=== PATIENT | female | born 1995 | race Two or more races ===

== ENCOUNTER 2016-07-30 13:03 | Emergency (ER) | payer OTHER ==
[2016-07-30 13:11] VITALS: BP 106/59; PULSE 81; TEMP 98.5; BMI 24.4
[2016-07-30] MEDS ORDERED: IBUPROFEN 600 MG TABLET (FP) PO ONE ×2 (13:43→13:47)
--- NOTE | 2016-07-30 13:47 | PDOC ---
History of Present Illness - General Chief Complaint: Cold Symptoms Stated Complaint: EAR PAIN, SORE THROAT Time Seen by Provider: 07/30/16 13:13 History Source: Patient Exam Limitations: No Limitations - History of Present Illness Initial Comments: 07/30/16 13:47 20 year old female with cold symptoms x 3weeks. Reports runny stuffy nose with one episode of subjective fever present with one week of left side ear pain and pain with swallowing. States took acetaminophen 65o for 3 weeks feeling better except for earache. Denies decrease hearing Timing/Duration: reports: week Severity: reports: mild Possible Cause: Yes: no prior episodes Modifying Factors: improves with: other Associated Symptoms: reports: sore throat Aspirin Received prior to arrival: Yes: no aspirin today ASA Contraindications(Core Measure): No: Allergy Beta Shaun Contraindications(Core Measure): Yes: Not Prescribed Beta Shaun Given by EMS(Core Measure): No Beta Shaun Taken at Home(Core Measure): No Beta Shaun Not Indicated at this Time(Core Measure): No Past History - Travel Traveled outside of the country in the last 30 days: No Close contact w/someone who was outside of country & ill: No - Past Medical History Allergies/Adverse Reactions: Allergies Allergy/AdvReac Type Severity Reaction Status Date / Time No Known Allergies Allergy Verified 07/30/16 13:06 Home Medications: Ambulatory Orders Amoxicillin - [Amoxicillin 500mg Capsule -] 500 mg PO TID #30 capsule 07/30/16 Suicide Attempt (Hx): No Other medical history: none - Immunization History Immunization Up to Date: Yes - Psycho/Social/Smoking Cessation Hx Anxiety: No Suicidal Ideation: No Smoking History: Never smoked Have you smoked in the past 12 months: No Information on smoking cessation initiated: No Hx Alcohol Use: No Drug/Substance Use Hx: No Substance Use Type: None Respiratory Specific PMHX - Complaint Specific PMHX Angina: No Bronchitis: No Pneumonia: No Pulmonary Embolus: No TB (Tuberculosis): No Review of Systems - Review of Systems Able to Perform ROS?: Yes Is the patient limited Lebanese proficient: No Constitutional: No: Chills, Fever, Night Sweats HEENTM: Yes: Ear Pain, Throat Pain. No: Nose Congestion Respiratory: Yes: Cough. No: Orthopnea, Shortness of Breath, Wheezing Cardiac (ROS): No: Chest Pain, Lightheadedness ABD/GI: No: Abdominal Distended, Blood Streaked Bowels, Nausea Integumentary: No: Bruising Neurological: No: Headache, Numbness, Paresthesia Endocrine: No: Excessive Sweating *Physical Exam - Vital Signs Last Vital Signs Temp Pulse Resp BP Pulse Ox 98.5 F 81 18 106/59 100 07/30/16 13:07 07/30/16 13:07 07/30/16 13:07 07/30/16 13:07 07/30/16 13:07 - Physical Exam General Appearance: Yes: Nourished, Appropriately Dressed, Apparent Distress HEENT: positive: EOMI, NICHOLAS, Normal ENT Inspection, TMs Normal, Pharynx Normal, TM Dull (left tm dull, no reflection of light, appears with ruptured membranes) Neck: positive: Supple. negative: Lymphadenopathy (R), Lymphadenopathy (L) Respiratory/Chest: positive: Lungs Clear. negative: Paradoxal Breathing, Crackles Cardiovascular: positive: Regular Rhythm, Regular Rate, S1, S2 Extremity: positive: Normal Capillary Refill, Normal Inspection, Normal Range of Motion, Tender Neurologic: positive: day care home provider II-XII NML intact, Fully Oriented, Alert, Normal Response, Motor Strength 5/5 Medical Decision Making - Medical Decision Making 07/30/16 13:51 20 year old female with otitis media 07/30/16 18:49 rx: amoxicillin x 10 days *DC/Admit/Observation/Transfer Diagnosis at time of Disposition: Otitis media Qualifiers: Otitis media type: suppurative Laterality: left Chronicity: acute Recurrence: not specified as recurrent Spontaneous tympanic membrane rupture: with spontaneous rupture Qualified Code(s): H66.012 - Acute suppurative otitis media with spontaneous rupture of ear drum, left ear - Discharge Dispostion Disposition: HOME Condition at time of disposition: Good Admit: No - Prescriptions Prescriptions: Amoxicillin - [Amoxicillin 500mg Capsule -] 500 mg PO TID #30 capsule - Patient Instructions Printed Discharge Instructions: DI for Otitis Media (Middle Ear Infection)- Child Additional Instructions: Return to emergency room for worsening of infection such as fever, chills or decrease hearing. - Post Discharge Activity Work/School Note: Back to Work
[2016-07-30] MEDS ORDERED: AMOXICILLIN 500 MG CAPSULE (FP) PO ONE (14:00)
[2016-07-30] MEDS ORDERED: AMOXICILLIN 500 MG CAPSULE (FP) ONE (14:00)
== END 2016-07-30 14:02 | disposition home or self-care (01) ==
LOC: JERFT 13:03
DX: H66.012 Acute suppurative otitis media with spontaneous rupture of ear drum, left ear (principal)
CPT/HCPCS: 99281-25

== ENCOUNTER 2016-08-29 12:45 | Emergency (ER) | payer OTHER ==
[2016-08-29 12:50] VITALS: BMI 24.7
[2016-08-29] MEDS ORDERED: RANITIDINE HCL 150 MG TABLET (FP) PO ONE (13:10)
[2016-08-29] MEDS ORDERED: ONDANSETRON 4 MG TABLET PO ONE (13:10)
[2016-08-29] MEDS ORDERED: RANITIDINE HCL 150 MG TABLET (FP) ONE (13:15)
[2016-08-29] MEDS ORDERED: ONDANSETRON *ODT* 4 MG TABLET ONE (13:16)
--- NOTE | 2016-08-29 13:26 | PDOC ---
History of Present Illness - General Chief Complaint: Pain Stated Complaint: ABD PAIN Time Seen by Provider: 08/29/16 12:54 History Source: Patient Exam Limitations: No Limitations - History of Present Illness Travel History: No Initial Comments: 08/29/16 13:21 20-year-old female presents to the emergency with complaints of diarrhea 2 days ago approximately 5 episodes followed by 3-4 yesterday but resolved after taking Imodium last night. Patient still complaining of burning cramping to her epigastric area with mild nausea and denies fever, chills, history of gallstones , urinary complaints, recent travel, recent illness, recent change in diet, or recent sick contacts. Timing/Duration: reports: changing over time Quality: reports: mild, burning, cramping Abdominal Pain Onset Location: reports: epigastric Pain Radiation: reports: no radiation Activities at Onset: reports: none Aggravating Factors: improves with: None Alleviating Factors: improves with: None Past History - Past Medical History Allergies/Adverse Reactions: Allergies Allergy/AdvReac Type Severity Reaction Status Date / Time No Known Allergies Allergy Verified 08/29/16 12:48 Home Medications: Ambulatory Orders NK [No Known Home Medication] 08/29/16 Suicide Attempt (Hx): No - Reproductive History Is Patient Now?: No - Immunization History Immunization Up to Date: Yes - Psycho/Social/Smoking Cessation Hx Anxiety: No Suicidal Ideation: No Smoking History: Never smoked Have you smoked in the past 12 months: No Information on smoking cessation initiated: No Hx Alcohol Use: No Drug/Substance Use Hx: No Substance Use Type: None Patient Lives Alone: No Lives with/in: parents Abd/GI Specific PMHX - Complaint Specific PMHX Gall Bladder Disease: No GERD: No GI Ulcer Disease: No Review of Systems - Review of Systems Able to Perform ROS?: Yes Constitutional: No: Symptoms Reported HEENTM: No: Symptoms Reported Respiratory: No: Symptoms reported Cardiac (ROS): No: Symptoms Reported ABD/GI: Yes: Diarrhea, Nausea, Abdominal cramping : No: Symptoms Reported Musculoskeletal: No: Symptoms Reported Integumentary: No: Symptoms Reported Neurological: No: Symptoms reported Hematologic/Lymphatic: No: Symptoms Reported *Physical Exam - Vital Signs Last Vital Signs Temp Pulse Resp BP Pulse Ox 98.1 F 86 18 118/65 100 08/29/16 12:48 08/29/16 12:48 08/29/16 12:48 08/29/16 12:48 08/29/16 12:48 - Physical Exam General Appearance: Yes: Nourished, Appropriately Dressed. No: Apparent Distress HEENT: positive: Pharynx Normal. negative: Pale Conjunctivae Respiratory/Chest: positive: Lungs Clear, Normal Breath Sounds. negative: Respiratory Distress, Accessory Muscle Use Cardiovascular: positive: Regular Rhythm, Regular Rate. negative: Murmur Gastrointestinal/Abdominal: positive: Normal Bowel Sounds, Soft, Tenderness ( mild epigastric. No right upper quadrant) Musculoskeletal: negative: CVA Tenderness Extremity: positive: Normal Capillary Refill. negative: Pedal Edema Integumentary: positive: Normal Color, Warm, Moist Neurologic: positive: Motor Strength 5/5 (ambulatory) ED Treatment Course - LABORATORY CBC & Chemistry Diagram: 08/29/16 13:12 08/29/16 13:12 Medical Decision Making - Medical Decision Making 08/29/16 13:25 patient with diarrhea that resolved after taking Imodium last nightbut has continual Epigastric burning and cramping associate mild nausea. Patient ordered for labs, lipase, urinalysis urine , Zofran, Pepcid, and reevaluation. 08/29/16 14:16 Laboratory Tests 08/29/16 08/29/16 08/29/16 13:12 13:12 13:12 WBC 7.3 D Hgb 13.6 Hct 40.2 Plt Count 173 Neutrophils % 65.9 Sodium 141 Potassium 3.4 L Chloride 104 Carbon Dioxide 26 Anion Gap 11 BUN 10 D Creatinine 0.5 L Random Glucose 85 Calcium 8.8 Magnesium 2.1 AST 16 ALT 21 Lipase 155 Urine Ketones Trace H Urine Blood 3+ H Ur Leukocyte Esterase Trace H Urine WBC 3 Urine HCG, Qual Negative Patient will given apple juice and saltines along with vitals to be completed. 08/29/16 14:28 Patient tolerated By mouth challenge and repeat vital stable. Patient requesting work note for today and will be discharged home with Zofran. *DC/Admit/Observation/Transfer Diagnosis at time of Disposition: Nausea, Epigastric pain Diarrhea Qualifiers: Diarrhea type: unspecified type Qualified Code(s): R19.7 - Diarrhea, unspecified - Discharge Dispostion Disposition: HOME Condition at time of disposition: Improved - Referrals Referrals: Samanta Kerr [Primary Care Provider] - - Patient Instructions Printed Discharge Instructions: DI for Epigastric Pain, DI for Viral Gastroenteritis -- Adult Additional Instructions: Please take Zofran as needed for nausea and have clear liquids or bland food today and tomorrow then advance as tolerated. Return to ED if symptoms return. otherwise follow-up with your primary care physician. - Post Discharge Activity Work/School Note: Back to Work
[2016-08-29 13:28] LABS: BASOPHIL 0.4 % (0-2.0); EOSINOPHIL 0.7 % (0-4.5); MCH 29.6 pg (25.7-33.7); MCHC 33.8 g/dl (32.0-36.0); MEAN CELL VOLUME 87.6 fl (80-96); MEAN PLT VOLUME 9.2 fl (7.5-11.1); NEUTROPHILS 65.9 % (42.8-82.8); PLATELET COUNT 173 K/MM3 (134-434); RDW 13.6 % (11.6-15.6); WHITE BLOOD COUNT 7.3 K/mm3 (4.0-10.0)
[2016-08-29 13:36] LABS: URINE APPEARANCE CLEAR; URINE BILIRUBIN NEGATIVE (NEGATIVE); URINE COLOR YELLOW; URINE GLUCOSE (UA) NEGATIVE (NEGATIVE); URINE KETONE TRACE (NEGATIVE); URINE NITRITE NEGATIVE (NEGATIVE); URINE PROTEIN NEGATIVE (NEGATIVE); URINE UROBILINOGEN NEGATIVE E.U./dl (0.2-1.0)
[2016-08-29 13:41] LABS: URINE BLOOD 3+ (NEGATIVE); URINE LEUK ESTERASE TRACE (NEGATIVE)
[2016-08-29 13:50] LABS: URINE MUCUS MANY; URINE RBC 22 /hpf (0-3); URINE WBC 3 /hpf (3-5)
[2016-08-29 14:10] LABS: ALBUMIN 3.9 g/dl (3.4-5.0); ALK PHOS 86 U/L (45-117); ANION GAP 11 (8-16); BILIRUBIN,TOTAL 0.2 mg/dL (0.2-1.0); CALCIUM 8.8 mg/dL (8.5-10.1); CO2 26 mmol/L (21-32); CREATININE 0.5 mg/dL (0.55-1.02); GLUCOSE,RANDOM 85 mg/dL (74-106); MAGNESIUM 2.1 mg/dL (1.8-2.4); SGOT/AST 16 U/L (15-37); SGPT/ALT 21 U/L (12-78); TOT PROT 6.9 g/dl (6.4-8.2)
[2016-08-29 14:36] VITALS: BP 117/72; PULSE 72; TEMP 98
== END 2016-08-29 15:00 | disposition home or self-care (01) ==
LOC: JER 12:45
DX: A08.4 Viral intestinal infection, unspecified (principal); B97.89 Other viral agents as the cause of diseases classified elsewhere
CPT/HCPCS: 36415; 80053; 81003; 81015; 83690; 83735; 84703; 85025; 99283-25

== ENCOUNTER 2016-09-07 11:20 | Emergency (ER) | payer OTHER ==
[2016-09-07 11:23] VITALS: TEMP 98.2; BMI 24.7
[2016-09-07 13:08] LABS: URINE APPEARANCE CLEAR; URINE BILIRUBIN NEGATIVE (NEGATIVE); URINE BLOOD NEGATIVE (NEGATIVE); URINE COLOR YELLOW; URINE GLUCOSE (UA) NEGATIVE (NEGATIVE); URINE KETONE TRACE (NEGATIVE); URINE NITRITE NEGATIVE (NEGATIVE); URINE PROTEIN NEGATIVE (NEGATIVE); URINE UROBILINOGEN NEGATIVE E.U./dl (0.2-1.0)
[2016-09-07 13:20] LABS: URINE LEUK ESTERASE TRACE (NEGATIVE)
[2016-09-07] MEDS ORDERED: SODIUM CHLORIDE 1,000 ML IV STA (13:20)
[2016-09-07] MEDS ORDERED: PANTOPRAZOLE SODIUM 40 MG in SODIUM CHLORIDE 100 ML IVPB ONE (13:20)
[2016-09-07] MEDS ORDERED: ONDANSETRON 4 MG/2 ML VIAL IVPUSH ONE (13:20)
[2016-09-07 13:21] LABS: URINE MUCUS FEW; URINE RBC <1 /hpf (0-3); URINE WBC 1 /hpf (3-5)
[2016-09-07] MEDS ORDERED: PANTOPRAZOLE SODIUM 100 ML IVPB ONE (13:26)
--- NOTE | 2016-09-07 13:30 | PDOC ---
History of Present Illness - General Chief Complaint: Pain, Acute Stated Complaint: ABD PAIN Time Seen by Provider: 09/07/16 12:43 History Source: Patient Exam Limitations: No Limitations - History of Present Illness Travel History: No Initial Comments: 09/07/16 13:01 20-year-old female presents the emergency room with complaints of Lower abdominal pain greater to the mid region and epigastric burning for the past week. Patient states has had 3 episodes of diarrhea since onset and has had intermittent nausea vomiting for the past week. Patient was seen here when it first began and states was given medication had lab work done including urine with no findings and went home feeling better. Patient states symptoms returned the next day and now concern for length of symptoms. Patient denies recent travel, recent change in weight, recent change in diet. Timing/Duration: reports: intermittent Quality: reports: mild, moderate, cramping Abdominal Pain Onset Location: reports: suprapubic Pain Radiation: reports: periumbilical Activities at Onset: reports: none Aggravating Factors: improves with: None Alleviating Factors: improves with: None Past History - Past Medical History Allergies/Adverse Reactions: Allergies Allergy/AdvReac Type Severity Reaction Status Date / Time No Known Allergies Allergy Verified 09/07/16 11:22 Home Medications: Ambulatory Orders NK [No Known Home Medication] 09/07/16 Suicide Attempt (Hx): No Other medical history: PATIENT DENIES MEDICAL HISTORY - Reproductive History LMP Normal: Yes Is Patient Now?: No - Immunization History Immunization Up to Date: Yes - Psycho/Social/Smoking Cessation Hx Anxiety: No Suicidal Ideation: No Smoking History: Never smoked Have you smoked in the past 12 months: No Hx Alcohol Use: No Drug/Substance Use Hx: No Substance Use Type: None Patient Lives Alone: No Lives with/in: parents Abd/GI Specific PMHX - Complaint Specific PMHX Gall Bladder Disease: No GERD: No GI Ulcer Disease: No Review of Systems - Review of Systems Able to Perform ROS?: Yes Constitutional: No: Symptoms Reported HEENTM: No: Symptoms Reported Respiratory: No: Symptoms reported Cardiac (ROS): No: Symptoms Reported ABD/GI: Yes: Diarrhea, Nausea, Vomiting, Abdominal cramping. No: Poor Appetite , Poor Fluid Intake : No: Symptoms Reported Musculoskeletal: No: Symptoms Reported Integumentary: No: Symptoms Reported Neurological: No: Symptoms reported Endocrine: No: Symptoms Reported Hematologic/Lymphatic: No: Symptoms Reported *Physical Exam - Vital Signs Last Vital Signs Temp Pulse Resp BP Pulse Ox 98.2 F 108 H 18 113/62 98 09/07/16 11:22 09/07/16 11:22 09/07/16 11:22 09/07/16 11:22 09/07/16 11:22 - Physical Exam General Appearance: Yes: Nourished, Appropriately Dressed. No: Apparent Distress HEENT: positive: EOMI, NICHOLAS, TMs Normal, Pharynx Normal. negative: Pale Conjunctivae Neck: positive: Supple Respiratory/Chest: positive: Lungs Clear, Normal Breath Sounds. negative: Respiratory Distress, Accessory Muscle Use Cardiovascular: positive: Regular Rhythm, Tachycardia. negative: Murmur Gastrointestinal/Abdominal: positive: Normal Bowel Sounds, Soft, Tenderness ( mild mid suprabic. no right lower quadrant no right upper quadrant). negative: Distended, Guarding, Rebound Musculoskeletal: negative: CVA Tenderness Extremity: positive: Normal Capillary Refill Integumentary: positive: Normal Color Neurologic: positive: Normal Mood/Affect (appears comfortable), Motor Strength 5 /5 (ambulatory) ED Treatment Course - LABORATORY CBC & Chemistry Diagram: 09/07/16 13:30 09/07/16 13:30 - ADDITIONAL ORDERS Additional order review: Laboratory Results 09/07/16 11:58 Urine Color Yellow Urine Appearance Clear Urine pH 6.0 Urine Protein Negative Urine Glucose (UA) Negative Urine Ketones Trace H Urine Blood Negative Urine Nitrite Negative Urine Bilirubin Negative Urine Urobilinogen Negative Ur Leukocyte Esterase Trace H Urine RBC <1 Urine WBC 1 Ur Epithelial Cells Rare Urine Mucus Few Urine HCG, Qual Negative Medical Decision Making - Medical Decision Making 09/07/16 13:06 Patient here with intermittent epigastric and lower abdominal cramping associated nausea vomiting diarrhea with last episode of diarrhea 4 days ago. Patient describes the stool is brown and watery but came to the ER due to length of symptoms. I have reviewed the chart from the second and there was no acute findings except for ketones in the urine. Patient will have repeat labs including CBC, comp, magnesium, lipase, urinalysis, urine , Zofran Protonix and IV fluids. 09/07/16 14:12 Laboratory Tests 09/07/16 09/07/16 09/07/16 11:58 13:30 13:30 WBC 7.8 Hgb 14.4 Hct 42.4 Sodium 141 Potassium 3.8 Chloride 102 Carbon Dioxide 27 Anion Gap 12 Creatinine 0.6 Random Glucose 77 Calcium 8.9 Total Bilirubin 0.3 D AST 15 ALT 19 Lipase 170 Urine Ketones Trace H Urine Nitrite Negative Urine Urobilinogen Negative Ur Leukocyte Esterase Trace H Urine RBC <1 Urine WBC 1 Patient states feeling better. Patient will be discharged home to take Pepcid as this may be related to indigestion versus viral syndrome *DC/Admit/Observation/Transfer Diagnosis at time of Disposition: Epigastric pain, Nausea - Discharge Dispostion Disposition: HOME Condition at time of disposition: Improved - Patient Instructions Printed Discharge Instructions: Nausea and Vomiting-Adult, DI for Diarrhea and Traveler's Diarrhea -- Adult Additional Instructions: At this point your labs showed no emergent findings and I do recommend to take Pepcid as prescribed rest, and eat bland non-spicy and greasy food for the next 72 hours. I also recommend that you follow-up with your primary care physician at this time.
[2016-09-07 13:46] LABS: BASOPHIL 0.5 % (0-2.0); EOSINOPHIL 0.3 % (0-4.5); MCH 29.7 pg (25.7-33.7); MCHC 33.9 g/dl (32.0-36.0); MEAN CELL VOLUME 87.8 fl (80-96); MEAN PLT VOLUME 8.9 fl (7.5-11.1); NEUTROPHILS 64.6 % (42.8-82.8); PLATELET COUNT 192 K/MM3 (134-434); RDW 13.7 % (11.6-15.6); WHITE BLOOD COUNT 7.8 K/mm3 (4.0-10.0)
[2016-09-07 14:08] LABS: ALK PHOS 84 U/L (45-117); ANION GAP 12 (8-16); BILIRUBIN,TOTAL 0.3 mg/dL (0.2-1.0); CALCIUM 8.9 mg/dL (8.5-10.1); CO2 27 mmol/L (21-32); CREATININE 0.6 mg/dL (0.55-1.02); GLUCOSE,RANDOM 77 mg/dL (74-106); MAGNESIUM 2.2 mg/dL (1.8-2.4); SGOT/AST 15 U/L (15-37); SGPT/ALT 19 U/L (12-78); TOT PROT 7.1 g/dl (6.4-8.2)
[2016-09-07 14:52] VITALS: BP 116/72; PULSE 82
== END 2016-09-07 14:30 | disposition home or self-care (01) ==
LOC: JER 11:20
PROC: 3E033GC Introduction of Other Therapeutic Substance into Peripheral Vein, Percutaneous Approach (ICD-10-PCS; principal; 2016-09-07)
DX: R10.13 Epigastric pain (principal); R11.0 Nausea
CPT/HCPCS: 36415; 80053; 81003; 81015; 83690; 83735; 84703; 85025; 99283-25

== ENCOUNTER 2017-06-11 20:55 | Emergency (ER) | payer OTHER ==
[2017-06-11 21:25] VITALS: BP 114/64; PULSE 76; TEMP 98.6; BMI 26.5
--- NOTE | 2017-06-11 21:27 | PDOC ---
Rapid Medical Evaluation Time Seen by Provider: 06/11/17 21:23 Medical Evaluation: Allergies Allergy/AdvReac Type Severity Reaction Status Date / Time No Known Allergies Allergy Verified 09/07/16 11:22 06/11/17 21:24 The patient presents with a chief complaint of: Tactile fever, sore throat and bilateral ear pain I have performed a brief in-person evaluation of this patient. Pertinent physical exam findings: vss, Erythema to posterior pharynx with no exudates. I have ordered the following: Rapid strep The patient will proceed to the ED for further evaluation. Discharge Disposition - Diagnosis Ear pain - Referrals - Patient Instructions - Post Discharge Activity
--- NOTE | 2017-06-11 22:02 | PDOC ---
History of Present Illness - General Chief Complaint: Ear Problem Stated Complaint: EAR PAIN Time Seen by Provider: 06/11/17 21:23 History Source: Patient Exam Limitations: No Limitations - History of Present Illness Initial Comments: 06/11/17 21:59 21-year-old female with no medical history presents to the emergency department complaining of left earache 2 weeks and sore throat 3 days without fever, chills, nausea/vomiting, headache, dizziness, lightheadedness, facial pains, nasal congestion, rhinorrhea, neck pain/stiffness, chest pain, shortness of breath, abdominal pains. Patient's been taking Tylenol with relief. Timing/Duration: reports: other (2 weeks) Presenting Symptoms: Yes: ear pain (left), sore throat. No: fever Past History - Past History Allergies/Adverse Reactions: Allergies No Known Allergies Allergy (Verified 06/11/17 21:25) Home Medications: Ambulatory Orders NK [No Known Home Medication] 06/11/17 Immunization Status Up to Date: Yes - Social History Smoking Status: Never smoked Review of Systems - Review of Systems Able to Perform ROS?: Yes Comments:: 06/11/17 21:59 CONSTITUTIONAL: Absent: fever, chills, diaphoresis, generalized weakness, malaise, loss of appetite HEENT: +left earache, +throat pain Absent: rhinorrhea, nasal congestion, throat swelling, difficulty swallowing, mouth swelling, eye pain, visual Changes CARDIOVASCULAR: Absent: chest pain, loss of consciousness, palpitations, irregular heart rate, peripheral edema RESPIRATORY: Absent: cough, shortness of breath, dyspnea with exertion, orthopnea, wheezing, stridor, hemoptysis GASTROINTESTINAL: Absent: abdominal pain, abdominal distension, nausea, vomiting, diarrhea, constipation, melena, hematochezia GENITOURINARY: Absent: dysuria, frequency, urgency, hesitancy, hematuria, flank pain, genital pain MUSCULOSKELETAL: Absent: myalgia, arthralgia, joint swelling SKIN: Absent: rash, itching, pallor Is the patient limited Armenian proficient: No *Physical Exam - Vital Signs Last Vital Signs Temp Pulse Resp BP Pulse Ox 98.6 F 76 18 114/64 100 06/11/17 21:21 06/11/17 21:21 06/11/17 21:21 06/11/17 21:21 06/11/17 21:21 - Physical Exam Comments: 06/11/17 21:59 GENERAL: Well developed, well nourished. Awake and alert. No acute distress. HEENT: Normocephalic, atraumatic. PERRLA, EOMI. No conjunctival pallor. Sclera are non- icteric. Moist mucous membranes. Oropharynx is clear. NECK: Supple. Full ROM. No JVD. Carotid pulses 2+ and symmetric, without bruits. No thyromegaly. No lymphadenopathy. CARDIOVASCULAR: Regular rate and rhythm. No murmurs, rubs, or gallops. Distal pulses are 2+ and symmetric. PULMONARY: No evidence of respiratory distress. Lungs clear to auscultation bilaterally. No wheezing, rales or rhonchi. ABDOMINAL: Soft. Non-tender. Non-distended. No rebound or guarding. No organomegaly. Normoactive bowel sounds. MUSCULOSKELETAL Normal range of motion at all joints. No bony deformities or tenderness. No CVA tenderness. EXTREMITIES: No cyanosis. No clubbing. No edema. No calf tenderness. SKIN: Warm and dry. Normal capillary refill. No rashes. No jaundice. NEUROLOGICAL: Alert, awake, appropriate. Cranial nerves 2-12 intact. No deficits to light touch and temperature in face, upper extremities and lower extremities. No motor deficits in the in face, upper extremities and lower extremities. Normoreflexic in the upper and lower extremities. Normal speech. Toes are down- going bilaterally. Gait is normal without ataxia. ED Treatment Course - ADDITIONAL ORDERS Additional order review: 06/11/17 21:34 Group A Strep Rapid Antigen - Final Throat *DC/Admit/Observation/Transfer Diagnosis at time of Disposition: Viral pharyngitis Ear pain Qualifiers: Laterality: left Qualified Code(s): H92.02 - Otalgia, left ear - Discharge Dispostion Disposition: HOME Condition at time of disposition: Stable Admit: No - Referrals Referrals: Vik Cabral MD [Staff Physician] - - Patient Instructions Printed Discharge Instructions: DI for Ear Pain-Child, DI for Viral Pharyngitis Additional Instructions: Increase fluids Take Tylenol alternating with Motrin as needed for pain Follow with ENT within 48 hours Return back to the emergency department for severe/persistent or worsening symptoms - Post Discharge Activity
== END 2017-06-11 22:08 | disposition home or self-care (01) ==
LOC: JERFT 20:55
DX: J02.9 Acute pharyngitis, unspecified (principal); B97.89 Other viral agents as the cause of diseases classified elsewhere
CPT/HCPCS: 87070; 87430; 99281-25

== ENCOUNTER 2018-11-15 08:51 | Emergency (ER) | payer OTHER ==
[2018-11-15 09:09] VITALS: BP 113/67; PULSE 82; TEMP 98.7; BMI 30.1
--- NOTE | 2018-11-15 09:27 | PDOC ---
History of Present Illness - General Chief Complaint: Ear Problem Stated Complaint: PAIN IN RT. EAR Time Seen by Provider: 11/15/18 09:09 History Source: Patient Exam Limitations: No Limitations Past History - Past Medical History Allergies/Adverse Reactions: Allergies Allergy/AdvReac Type Severity Reaction Status Date / Time No Known Allergies Allergy Verified 11/15/18 09:06 Home Medications: Ambulatory Orders NK [No Known Home Medication] 06/11/17 COPD: No - Immunization History Immunization Up to Date: Yes - Suicide/Smoking/Psychosocial Hx Smoking History: Never smoked Have you smoked in the past 12 months: No Hx Alcohol Use: No Drug/Substance Use Hx: No Substance Use Type: None *Physical Exam - Vital Signs Last Vital Signs Temp Pulse Resp BP Pulse Ox 98.7 F 82 18 113/67 99 11/15/18 09:06 11/15/18 09:06 11/15/18 09:06 11/15/18 09:06 11/15/18 09:06 - Physical Exam General Appearance: No: Apparent Distress HEENT: positive: Other (R ear helix, dried blood behind piercing site, no pus drainage, mild swelling of site, no erythema) Integumentary: positive: Normal Color Neurologic: positive: Alert, Normal Mood/Affect Medical Decision Making - Medical Decision Making 23 y/o F with no sig pmh presents with pain along R helix s/p ear piercing 1 month ago. Mentions having slight pain along site and then yesterday, noted it appeared more swollen. Today, patient removed the earring as it was bothering her and noticed bloody d/c with some pus. Denies fever Based on current PE, no need for PO antibiotics Advised topical antibiotic ointment 11/15/18 09:23 *DC/Admit/Observation/Transfer Diagnosis at time of Disposition: Complication of right ear piercing Qualifiers: Encounter type: initial encounter Qualified Code(s): S01.331A - Puncture wound without foreign body of right ear, initial encounter - Discharge Dispostion Disposition: HOME Condition at time of disposition: Stable Decision to Admit order: No - Referrals - Patient Instructions Additional Instructions: Thank you for choosing [facility]. It was a pleasure taking care of you. Apply Bacitracin or Neosporin to ear twice a day Avoid another piercing for now and give it some time to heal Return to the Emergency Department if your symptoms worsen or persist, you have fever, worsening swelling, large pus discharge, redness or other concerning symptoms. - Post Discharge Activity
== END 2018-11-15 09:30 | disposition home or self-care (01) ==
LOC: JER 08:51
DX: S01.331A Puncture wound without foreign body of right ear, initial encounter (principal); W26.8XXA Contact with other sharp object(s), not elsewhere classified, initial encounter; Y93.89 Activity, other specified; Y92.038 Other place in apartment as the place of occurrence of the external cause; Y99.8 Other external cause status
CPT/HCPCS: 99281-25

== ENCOUNTER 2021-05-30 15:24 | Emergency (ER) | payer OTHER ==
[2021-05-30 15:41] VITALS: BP 107/62; PULSE 102; TEMP 98; BMI 32.1
[2021-05-30 17:32] LABS: HCG,QUALITATIVE URINE Positive
[2021-05-30 17:33] LABS: EPI CELLS 13 /uL (0-25.1); HYALINE CASTS 0 /uL (0-3.1); PH,URINE 6.5 (5.0-8.0); URINE APPEARANCE CLEAR; URINE BACTERIA 520 /uL (0-1359); URINE BILIRUBIN NEGATIVE (NEGATIVE); URINE COLOR YELLOW; URINE GLUCOSE (UA) NEGATIVE (NEGATIVE); URINE KETONE NEGATIVE (NEGATIVE); URINE LEUK ESTERASE NEGATIVE (NEGATIVE); URINE NITRITE NEGATIVE (NEGATIVE); URINE PROTEIN NEGATIVE (NEGATIVE); URINE RBC 13 /uL (0-23.9); URINE UROBILINOGEN 0.2 mg/dL (0.2-1.0); URINE WBC 14 /uL (0-25.8)
[2021-05-30 17:45] LABS: BASO % 0.3 % (0-2.0); EOS % 0.4 % (0-4.5); HEMATOCRIT 37.8 % (32.4-45.2); HEMOGLOBIN 12.8 GM/dL (10.7-15.3); LYMPH % 23.2 % (8-40); MCH 29.4 pg (25.7-33.7); MCHC 33.9 g/dl (32.0-36.0); MEAN CELL VOLUME 86.8 fl (80-96); MEAN PLT VOLUME 9.3 fl (7.5-11.1); MONO % 7.2 % (3.8-10.2); NEUT % 68.9 % (42.8-82.8); PLATELET COUNT 199 10^3/uL (134-434); RBC 4.35 M/mm3 (3.60-5.2); RDW 13.5 % (11.6-15.6); WHITE BLOOD COUNT 9.5 K/mm3 (4.0-10.0)
[2021-05-30 18:16] LABS: CALCIUM 8.9 mg/dL (8.5-10.1)
[2021-05-30 18:17] LABS: BLOOD UREA NITROGEN 12.2 mg/dL (7-18)
[2021-05-30 18:20] LABS: CREATININE 0.7 mg/dL (0.55-1.3)
[2021-05-30 18:22] LABS: BILIRUBIN,TOTAL 0.2 mg/dL (0.2-1); TOT PROT 7.1 g/dl (6.4-8.2)
== END 2021-05-30 20:48 | disposition home or self-care (01) ==
LOC: JER 15:24
DX: O20.0 Threatened abortion (principal); Z3A.01 Less than 8 weeks gestation of pregnancy
CPT/HCPCS: 36415; 76817-TC; 80053; 81003; 84702; 84703; 85025; 86850; 86900; 86901; 87086; 99284-25

== ENCOUNTER 2021-08-11 10:40 | Emergency (ER) | payer OTHER ==
[2021-08-11 10:47] VITALS: BMI 32.5
[2021-08-11 11:48] LABS: HCG,QUALITATIVE URINE Positive
[2021-08-11 11:51] LABS: EPI CELLS 8 /uL (0-25.1); HYALINE CASTS 1 /uL (0-3.1); PH,URINE 6.5 (5.0-8.0); URINE APPEARANCE CLEAR; URINE BACTERIA 448 /uL (0-1359); URINE BILIRUBIN NEGATIVE (NEGATIVE); URINE COLOR YELLOW; URINE GLUCOSE (UA) TRACE (NEGATIVE); URINE KETONE TRACE (NEGATIVE); URINE LEUK ESTERASE NEGATIVE (NEGATIVE); URINE NITRITE NEGATIVE (NEGATIVE); URINE PROTEIN NEGATIVE (NEGATIVE); URINE RBC 8 /uL (0-23.9); URINE UROBILINOGEN 0.2 mg/dL (0.2-1.0); URINE WBC 7 /uL (0-25.8)
[2021-08-11 11:55] LABS: BASO % 0.3 % (0-2.0); EOS % 0.4 % (0-4.5); HEMATOCRIT 36.1 % (32.4-45.2); HEMOGLOBIN 12.3 GM/dL (10.7-15.3); MCH 29.4 pg (25.7-33.7); MCHC 34.1 g/dl (32.0-36.0); MEAN CELL VOLUME 86.4 fl (80-96); MEAN PLT VOLUME 8.9 fl (7.5-11.1); MONO % 6.5 % (3.8-10.2); NEUT % 73.8 % (42.8-82.8); PLATELET COUNT 175 10^3/uL (134-434); RBC 4.18 M/mm3 (3.60-5.2); RDW 13.6 % (11.6-15.6); WHITE BLOOD COUNT 8.3 K/mm3 (4.0-10.0)
[2021-08-11 12:19] LABS: ALBUMIN 3.1 g/dl (3.4-5.0); BLOOD UREA NITROGEN 7.1 mg/dL (7-18); CALCIUM 8.8 mg/dL (8.5-10.1)
[2021-08-11 12:22] LABS: CREATININE 0.4 mg/dL (0.55-1.3)
[2021-08-11 12:24] LABS: BILIRUBIN,TOTAL 0.1 mg/dL (0.2-1); TOT PROT 6.4 g/dl (6.4-8.2)
[2021-08-11 13:34] VITALS: BP 110/68; PULSE 85; TEMP 97.8
== END 2021-08-11 13:32 | disposition home or self-care (01) ==
LOC: JER 10:40
DX: O26.852 Spotting complicating pregnancy, second trimester (principal); Z3A.16 16 weeks gestation of pregnancy
CPT/HCPCS: 36415; 76801-TC; 80053; 81003; 84702; 84703; 85025; 87086; 99284-25

== ENCOUNTER 2022-01-13 10:40 | Inpatient (IN) | payer OTHER ==
[2022-01-13 12:36] LABS: EPI CELLS >36 /uL (0-25.1); HYALINE CASTS 2 /uL (0-3.1); PH,URINE 6.5 (5.0-8.0); URINE APPEARANCE CLEAR; URINE BACTERIA 1523 /uL (0-1359); URINE BILIRUBIN NEGATIVE (NEGATIVE); URINE COLOR YELLOW; URINE GLUCOSE (UA) NEGATIVE (NEGATIVE); URINE KETONE NEGATIVE (NEGATIVE); URINE LEUK ESTERASE NEGATIVE (NEGATIVE); URINE NITRITE NEGATIVE (NEGATIVE); URINE PROTEIN 3+ (NEGATIVE); URINE RBC 10 /uL (0-23.9); URINE UROBILINOGEN 0.2 mg/dL (0.2-1.0)
[2022-01-13] MEDS ORDERED: DINOPROSTONE 10 MG VAGINAL SUPPOSITORY VG ONE (13:00)
[2022-01-13 13:19] LABS: INR 1.04 (0.83-1.09)
[2022-01-13 13:22] LABS: RETICULOCYTES 2.3 % (0.5-1.5)
[2022-01-13 13:46] LABS: URIC ACID 6.2 mg/dL (2.6-7.2)
[2022-01-13 13:50] LABS: CALCIUM 7.9 mg/dL (8.5-10.1)
[2022-01-13 13:51] LABS: BLOOD UREA NITROGEN 10.8 mg/dL (7-18)
[2022-01-13 13:54] LABS: CREATININE 0.5 mg/dL (0.55-1.3)
[2022-01-13 16:12] VITALS: BMI 40.5
[2022-01-13 22:15] LABS: BASO % 0.2 % (0-2.0); EOS % 0.2 % (0-4.5); HEMATOCRIT 36.4 % (32.4-45.2); HEMOGLOBIN 12.6 GM/dL (10.7-15.3); LYMPH % 22.5 % (8-40); MCH 30.1 pg (25.7-33.7); MCHC 34.6 g/dl (32.0-36.0); MEAN CELL VOLUME 86.9 fl (80-96); MEAN PLT VOLUME 10.4 fl (7.5-11.1); MONO % 11.8 % (3.8-10.2); NEUT % 65.3 % (42.8-82.8); PLATELET COUNT 122 10^3/uL (134-434); RBC 4.19 M/mm3 (3.60-5.2); RDW 14.7 % (11.6-15.6)
[2022-01-14] MEDS ORDERED: OXYTOCIN 30 UNITS in 0.9% NS 30 UNIT/500 ML INFUS.BAG IVPB SCH (01:45)
[2022-01-14] MEDS: ELECTROLYTE-148 SOLN 1,000 ML IV SCH ×3 (03:00→18:30)
[2022-01-14] MEDS ORDERED: OXYTOCIN 30 UNITS in 0.9% NS 30 UNIT/500 ML INFUS.BAG IVPB ONE (03:13)
[2022-01-14] MEDS ORDERED: BUTORPHANOL TARTRATE 1 MG/ML VIAL IVPB ONE (12:53)
[2022-01-14] MEDS ORDERED: BUTORPHANOL TARTRATE 2 MG/ML VIAL ONE (13:38)
[2022-01-14] MEDS ORDERED: OXYTOCIN 20 UNITS in 0.9% NS 20 UNIT/1,000 ML INFUS.BAG IV ONE (17:32)
[2022-01-14] MEDS ORDERED: FENTANYL/BUPIVACAINE/NS/PF - PCEA - 50 ML DISP.SYRIN EP ONE (19:33)
[2022-01-14] MEDS ORDERED: NALOXONE HCL 0.4 MG/ML VIAL IVPUSH PRN (19:47)
[2022-01-14] MEDS: FENTANYL/BUPIVACAINE/NS/PF - PCEA - 50 ML DISP.SYRIN EP SCH (20:10)
[2022-01-14] MEDS ORDERED: METHYLERGONOVINE MALEATE 0.2 MG/1 ML AMP IM PRN (22:43)
[2022-01-14] MEDS ORDERED: BISACODYL 10 MG SUPP.RECT RC PRN (22:43)
[2022-01-14] MEDS ORDERED: ACETAMINOPHEN 325 MG TABLET (FP) PO PRN (22:43)
[2022-01-14] MEDS ORDERED: BENZOCAINE 28 GM HEMORRHOIDAL OINTMENT TP PRN (22:43)
[2022-01-14] MEDS ORDERED: WITCH HAZEL 50% (TUCKS) 40 PAD/JAR PAD TP PRN (22:43)
[2022-01-14] MEDS ORDERED: BENZOCAINE 20% 57 GM BOTTLE TP PRN (22:43)
[2022-01-14] MEDS ORDERED: OXYTOCIN 20 UNITS in 0.9% NS 20 UNIT/1,000 ML INFUS.BAG IV SCH (22:45)
[2022-01-15] MEDS: IBUPROFEN 600 MG TABLET (FP) PO PRN ×3 (00:37→19:18)
[2022-01-15 08:08] LABS: BASO % 0.2 % (0-2.0); EOS % 0.1 % (0-4.5); HEMATOCRIT 31.9 % (32.4-45.2); HEMOGLOBIN 10.8 GM/dL (10.7-15.3); LYMPH % 11.9 % (8-40); MCH 29.5 pg (25.7-33.7); MEAN CELL VOLUME 86.8 fl (80-96); MEAN PLT VOLUME 9.8 fl (7.5-11.1); MONO % 12.2 % (3.8-10.2); NEUT % 75.6 % (42.8-82.8); PLATELET COUNT 105 10^3/uL (134-434); RBC 3.68 M/mm3 (3.60-5.2); RDW 14.9 % (11.6-15.6)
[2022-01-15] MEDS: PRENATAL VITAMINS W/ FOLIC ACID TABLET (FP) PO SCH (10:47)
[2022-01-15] MEDS: guaiFENesin 200 MG/10 ML 10 ML UNIT-DOSE CUPS PO PRN ×2 (15:30→21:30)
[2022-01-15] MEDS: FENTANYL/BUPIVACAINE/NS/PF - PCEA - 50 ML DISP.SYRIN EP SCH (21:00)
[2022-01-15] MEDS ORDERED: SENNOSIDES/DOCUSATE COMBO (SENNA PLUS) TABLET (UD) PO PRN (22:00)
[2022-01-16] MEDS: IBUPROFEN 600 MG TABLET (FP) PO PRN (07:55)
[2022-01-16 09:02] VITALS: BP 138/84; PULSE 87; RESP 18; TEMP 98.8
[2022-01-16] MEDS: PRENATAL VITAMINS W/ FOLIC ACID TABLET (FP) PO SCH (09:24)
[2022-01-16] MEDS: guaiFENesin 200 MG/10 ML 10 ML UNIT-DOSE CUPS PO PRN (09:24)
== END 2022-01-16 13:30 | disposition home or self-care (01) | DRG 560 ==
LOC: JDEL 10:40 → JLDR 12:45 → J3W 01-15 00:20
PROVIDERS: ADMIT Obstetrics & Gynecology; ATTEND Obstetrics & Gynecology
PROC: 3E0P7VZ Introduction of Hormone into Female Reproductive, Via Natural or Artificial Opening (ICD-10-PCS; 2022-01-13)
PROC: 10E0XZZ Delivery of Products of Conception, External Approach (ICD-10-PCS; principal; 2022-01-14)
PROC: 0W8NXZZ Division of Female Perineum, External Approach (ICD-10-PCS; 2022-01-14)
DX: O24.429 Gestational diabetes mellitus in childbirth, unspecified control (principal); Z3A.38 38 weeks gestation of pregnancy; Z37.0 Single live birth; O99.214 Obesity complicating childbirth
CPT/HCPCS: 36415; 59025; 59409; 80048; 81003; 82570; 82962; 82977; 83010; 84156; 84450; 84460; 84550; 85025; 85032; 85045; 85610; 85730; 86780; 86850; 86900; 86901; C9803-CS; U0003; U0005